=== PATIENT | female | born 1955 | race Caucasian/White ===

== ENCOUNTER 2020-12-20 22:13 | Emergency (ER) | payer MEDICARE, MEDICAID ==
[~2020-12-20] VITALS: Ht 162.6 cm; Wt 54.5 kg
[~2020-12-20 22:13] MED LIST: AZIT250T PO; NO HOME MEDS; ONDA8TAB9 PO
[2020-12-20] MEDS ORDERED: oxyCODONE IR 5mg (immed. release) tablet PO ONE (23:00)
[2020-12-20] MEDS ORDERED: ketorolac trometh. 30mg/ml inj. IM ONE (23:00)
--- NOTE | 2020-12-20 23:28 | NUR ---
returned form ct. bp 165/98. pain is 7 out of 10. states only slightly better than earlier. was just given pain meds.
[2020-12-21] MEDS ORDERED: HYDR-3965 PO (00:16)
[2020-12-21] MEDS ORDERED: CYCL-1 PO (00:16)
[2020-12-21 00:27] VITALS: BP 144/81
--- NOTE | 2020-12-21 00:28 | NUR ---
p with L3 fracture. LSO brace to be placed. Pt friend pickinig her up for Dc./
== END 2020-12-21 01:00 | disposition home or self-care (01) ==
LOC: ER 22:14
DX: S32.039A Unspecified fracture of third lumbar vertebra, initial encounter for closed fracture (principal); K59.00 Constipation, unspecified; M81.0 Age-related osteoporosis without current pathological fracture; Z87.01 Personal history of pneumonia (recurrent); Z79.2 Long term (current) use of antibiotics; Z79.899 Other long term (current) drug therapy; Z98.891 History of uterine scar from previous surgery; X50.1XXA Overexertion from prolonged static or awkward postures, initial encounter; Y93.89 Activity, other specified; Y92.89 Other specified places as the place of occurrence of the external cause; Y99.8 Other external cause status
CPT/HCPCS: 72131; 96372; 99284; J1885

== ENCOUNTER 2021-11-08 09:37 | Emergency (ER) | payer MEDICARE, MEDICAID ==
[~2021-11-08] VITALS: Ht 162.6 cm; Wt 55.3 kg
[~2021-11-08 09:37] MED LIST changes: +CYCL-1 PO
[2021-11-08 09:39] VITALS: BP 174/97
[2021-11-08] MEDS ORDERED: LIDOcaine 1% 30ml preserv. free vial SQ STA (10:15)
[2021-11-08] MEDS ORDERED: MELO7.5T12 PO (10:25)
== END 2021-11-08 10:41 | disposition home or self-care (01) ==
LOC: ER 09:38
DX: M54.16 Radiculopathy, lumbar region (principal); M81.0 Age-related osteoporosis without current pathological fracture; Z87.81 Personal history of (healed) traumatic fracture; Z79.2 Long term (current) use of antibiotics; Z87.01 Personal history of pneumonia (recurrent); Z87.891 Personal history of nicotine dependence
CPT/HCPCS: 20553; 99284

== ENCOUNTER 2022-04-11 17:52 | Emergency (ER) | payer MEDICARE, MEDICAID ==
[~2022-04-11] VITALS: Ht 162.6 cm; Wt 55.5 kg
[~2022-04-11 17:52] MED LIST changes: +MELO7.5T12 PO
[2022-04-11 17:57] VITALS: BP 133/84
== END 2022-04-11 20:11 | disposition home or self-care (01) ==
LOC: ER 17:52
DX: S66.911A Strain of unspecified muscle, fascia and tendon at wrist and hand level, right hand, initial encounter (principal); S60.011A Contusion of right thumb without damage to nail, initial encounter; W18.39XA Other fall on same level, initial encounter; Y93.89 Activity, other specified; Y92.89 Other specified places as the place of occurrence of the external cause; Y99.8 Other external cause status
CPT/HCPCS: 29125; 73110; 99284